=== PATIENT | male | born 1960 | race Caucasian/White ===

== ENCOUNTER → 2016-06-27 | Outpatient (CLI) | payer BC ==
[~2016-06-27] MED LIST: GADOBUTROL 10mMol/10ml INJECTION IV ONE; SALINE FLUSH 10ml SYRINGE ONE
--- NOTE | 2016-06-27 10:11 | DI ---
Indication: ITS.REASON: M40.36 FLAT BA; M48.06 STENOSIS; M51.37 DEGENERATIVE DISC DISEASE PROCEDURE: CT LUMBAR SPINE W/O CONTRAST: Encounter: Initial Comparison: None Technique: Axial noncontrast CT imaging of the lumbar spine was performed with coronal and sagittal two-dimensional reformats. Automated Exposure Control and Iterative Reconstruction dose reducing techniques were utilized. FINDINGS: The alignment of the lumbar spine is straightened with loss of the normal lordosis. Anterior spinal fusion with a disk spacer device at L5-S1. Mild scoliosis. No acute compression fracture. Severe disk space narrowing at L3-L4 with degenerative endplate changes. Vacuum disk phenomenon noted at L2-L3 and L4-L5. Paraspinal soft tissues show no acute findings. Segmental analysis: T12-L1: Normal L1-L2: Normal L2-L3: Anterior and lateral disk bulging. No focal central protrusion or central canal stenosis. No neural foraminal narrowing. L3-L4: Disk osteophyte complex with degenerative facet disease contributing to mild to moderate central canal stenosis. Mild right and moderate left neural foraminal stenosis. L4-L5: Central disk protrusion causing mild to moderate central canal stenosis. Degenerative facet disease with mild bilateral neural foraminal stenosis. L5-S1: Left central disk osteophyte complex narrowing the left lateral recess without true central canal stenosis. There is moderate left neural foraminal stenosis and possible impingement upon the traversing left S1 nerve root. Degenerative facet disease contributing to moderate right neural foraminal stenosis as well. Impression: Postoperative changes with scoliosis and degenerative disk and facet disease as above. .
--- NOTE | 2016-06-27 11:05 | DI ---
Indication: ITS.REASON: M40.36 FLAT BA; M48.06 STENOSIS; M51.37 DEGENERATIVE DISC DISEASE PROCEDURE: MRI LUMBAR SPINE W/WO CONTRAST: Encounter: Initial Comparison: MRI lumbar spine dated October 04, [address] lumbar spine from today Technique: Multiplanar multisequence MR imaging of the lumbar spine was performed with and without contrast. Contrast: 8 mL Gadavist Findings: Alignment of the lumbar spine is stable with a disk spacer device again noted at the L5-S1 level. Interval worsening in degenerative endplate changes at L3-L4 with degenerative endplate edema. Vertebral body heights are maintained. No acute fractures. The conus medullaris terminates normally at L1. Paraspinal soft tissues are unremarkable. Segmental analysis: L1-L2: No significant disk herniation, central canal or neural foraminal stenosis. L2-L3: Anterior disk osteophyte complex. No central protrusion or central canal stenosis. No neural foraminal narrowing. L3-L4: Severe disk height loss with a disk osteophyte complex and annular disk bulge asymmetric to the left. This effaces the left lateral recess and contacts the traversing left L4 nerve root. Mild central canal stenosis. Severe left neural foraminal stenosis with disk material impinging upon the exiting left L3 nerve root. Moderate right neural foraminal stenosis. This is worsened from the prior MRI. L4-L5: Small annular disk bulge with mild central canal narrowing and lateral recess narrowing. Degenerative facet disease contributing to mild to moderate bilateral neural foraminal stenosis. This appears stable from the comparison MRI. L5-S1: Small central protrusion without central canal stenosis. Left lateral osteophyte and facet changes contributing to severe left neural foraminal stenosis and impingement on the exiting left L5 nerve root. Severe right neural foraminal stenosis as well with impingement on the right L5 nerve root. This is stable from the comparison MRI. No areas of worrisome postcontrast enhancement. Impression: Areas of severe neural foraminal stenosis with nerve root impingement with significant interval worsening at the L3-L4 level. .
== END ==
LOC: IMA 07:49
PROVIDERS: ATTEND Orthopaedic Surgery Orthopaedic Surgery of the Spine
DX: M51.37 Other intervertebral disc degeneration, lumbosacral region (principal); M48.06 Spinal stenosis, lumbar region; M40.36 Flatback syndrome, lumbar region
CPT/HCPCS: 72131; 72158; A9585